=== PATIENT | male | born 1970 | race Two or more races ===

== ENCOUNTER 2018-12-08 14:09 | Emergency (ER) | payer OTHER ==
[~2018-12-08] VITALS: Ht 160 cm; Wt 75.0 kg
[2018-12-08] MEDS ORDERED: CLONIDINE 0.2MG TABLET PO ONE (15:45)
[2018-12-08 16:47] LABS: BASOPHILS % 0.5 % (0.0-2.0); EOSINOPHILS % 2.1 % (0.0-5.0); HEMATOCRIT. 43.5 % (42.0-52.0); HEMOGLOBIN. 14.7 g/dL (14.0-18.0); LYMPHOCYTES % 14.9 % (20.0-50.0); MEAN CORPUSCULAR HEMOGLOBIN 31.7 pg (28.0-32.0); MEAN CORPUSCULAR VOLUME 93.9 fL (80.0-94.0); MEAN PLATELET VOLUME 7.4 fl (7.4-10.4); MONOCYTES % 6.2 % (2.0-8.0); NEUTROPHILS % 76.3 % (40.0-76.0); PLATELET 311 x1000/uL (130-400); RED BLOOD CELL COUNT 4.63 mill/uL (4.7-6.1); RED CELL DISTRIBUTION WIDTH 12.4 % (11.6-14.6)
[2018-12-08 16:54] LABS: CHLORIDE 102 mEq/L (98-107)
[2018-12-08 18:30] VITALS: BP 128/67
== END 2018-12-08 18:39 | disposition home or self-care (01) ==
LOC: ER 14:09
DX: I10 Essential (primary) hypertension (principal); R51 Headache; R42 Dizziness and giddiness
CPT/HCPCS: 36415; 99283

== ENCOUNTER 2020-06-04 22:48 | Emergency (ER) | payer OTHER ==
[~2020-06-04] VITALS: Ht 160 cm; Wt 73.0 kg
[2020-06-04 22:53] VITALS: BP 143/86
[2020-06-05] MEDS ORDERED: MAGNESIUM/ALUMINUM HYDROXIDE/SIMETHICONE 30ML UDC PO ONE (01:45)
== END 2020-06-05 02:08 | disposition home or self-care (01) ==
LOC: ER 22:48
DX: K30 Functional dyspepsia (principal); I10 Essential (primary) hypertension
CPT/HCPCS: 99283